=== PATIENT | male | born 1965 | race Caucasian/White ===

== ENCOUNTER 2018-08-21 15:54 | Inpatient (IN) | payer OTHER ==
[2018-08-21 17:03] VITALS: BMI 28.6
--- NOTE | 2018-08-21 18:44 | HP ---
COWS - Scale Resting Pulse: 1= [place] 81-100 Sweatin=Flushed/Facial Moisture Restless Observation: 3= Extraneous Movement Pupil Size: 0= Normal to Room Light Bone or Joint Aches: 2= Severe Diffuse Aches Runny Nose/ Eye Tearin= Nasal Congestion GI Upset > 30mins: 2= Nausea/Diarrhea Tremor Observation: 0= None Yawning Observation: 0= None Anxiety or Irritability: 2=Irritable/Anxious Goose Flesh Skin: 0=Smooth Skin COWS Score: 13 CIWA Score - Admission Criteria [facility]ASAS Guidelines: Admission for Medically Managed Detox: Requires at least one of the followin. CIWA greater than 12 2. Seizures within the past 24 hours 3. Delirium tremens within the past 24 hours 4. Hallucinations within the past 24 hours 5. Acute intervention needed for co occurring medical disorder 6. Acute intervention needed for co occurring psychiatric disorder 7. Severe withdrawal that cannot be handled at a lower level of care (continued vomiting, continued diarrhea, abnormal vital signs) requiring intravenous medication and/or fluids 8. Admission [facility] Allergies/Adverse Reactions: Allergies Allergy/AdvReac Type Severity Reaction Status Date / Time prochlorperazine AdvReac Severe Swelling Verified 08/21/18 16:48 [From Compazine] haloperidol [From Haldol] AdvReac Intermediate Swelling Verified 08/21/18 16:48 History of Present Illness: This report was requested by: Valerie Sandra | Reference #: [id number] Others' Prescriptions Patient Name: Rei Rosas Date: 1965 Address: [address] [place] [address] Sex: Male Rx Written Rx Dispensed Drug Quantity Days Supply Prescriber Name 02/03/2018 02/03/2018 suboxone 8 mg-2 mg sl film 90 30 Lila Galindo 01/06/2018 01/06/2018 suboxone 8 mg-2 mg sl film 90 30 Nj Demarco MD 12/31/2017 12/31/2017 suboxone 8 mg-2 mg sl film 21 7 Lila Galindo 12/01/2017 12/01/2017 suboxone 8 mg-2 mg sl film 28 14 Eliazar Galeana) 11/04/2017 11/04/2017 suboxone 8 mg-2 mg sl film 56 28 Teena Mitchell MD 10/21/2017 10/21/2017 suboxone 8 mg-2 mg sl film 28 14 Bret Goodwin MD 10/07/2017 10/07/2017 suboxone 8 mg-2 mg sl film 28 14 Bret Goodwin MD 10/06/2017 10/06/2017 suboxone 8 mg-2 mg sl film 2 1 Alexia Painting () 09/30/2017 09/30/2017 suboxone 8 mg-2 mg sl film 14 7 Nj Demarco MD 09/16/2017 09/16/2017 suboxone 8 mg-2 mg sl film 14 7 Teena Mitchell MD Patient Name: Rei Rosas Date: 1965 Address: [address] [place] [address] Sex: Male Rx Written Rx Dispensed Drug Quantity Days Supply Prescriber Name 12/16/2017 12/16/2017 suboxone 8 mg-2 mg sl film 42 14 Nj Demarco MD pt here requesting detox from heroin use , reports latest use yesterday , IVDU 4-5 bundles /day relapse after leaving [facility] @ [facility] 1 mo ago, reports admin d/c . cocaine : 20 $ /day ivdu , needles from the exchange , denies sharing , + re -using , denies abscess , OD " a long time ago " tobacco : 02/20 ppd pmhx : anxiety , Exam Limitations: Clinical Condition - Ebola screening Have you traveled outside of the country in the last 21 days: No Have you had contact with anyone from an Ebola affected area: No - Review of Systems Constitutional: See HPI EENT: reports: See HPI, Other (poor dentition , many missing teeth) Respiratory: reports: No Symptoms reported Cardiac: reports: No Symptoms Reported GI: reports: See HPI : reports: No Symptoms Reported Musculoskeletal: reports: See HPI, Back Pain (chronic) Integumentary: reports: Rash (reports mosquito bites) Endocrine: reports: No Symptoms Reported Psychiatric: reports: Orientated x3, Agitated, Anxious Patient History - Patient Medical History Hx Anemia: No Hx Asthma: No Hx Chronic Obstructive Pulmonary Disease (COPD): No Hx Cancer: No Hx Cardiac Disorders: No Hx Congestive Heart Failure: No Hx Hypertension: No Hx Hypercholesterolemia: No Hx Pacemaker: No HX Cerebrovascular Accident: No Hx Seizures: No Hx Dementia: No Hx Diabetes: No Hx Gastrointestinal Disorders: No Hx Liver Disease: No Hx Genitourinary Disorders: No Hx Sexually Transmitted Disorders: No Hx Renal Disease (ESRD): No Hx Thyroid Disease: No Hx Human Immunodeficiency Virus (HIV): No Hx Hepatitis C: Yes Hx Depression: No Hx Suicide Attempt: No Hx Bipolar Disorder: No Hx Schizophrenia: No - Patient Surgical History Past Surgical History: Yes Hx Neurologic Surgery: No Hx Cataract Extraction: No Hx Cardiac Surgery: No Hx Lung Surgery: No Hx Breast Surgery: No Hx Breast Biopsy: No Hx Abdominal Surgery: No Hx Appendectomy: No Hx Cholecystectomy: Yes (1999 OPEN) Hx Genitourinary Surgery: Yes (KIDNEY STONE REMOVED 2014) Hx Orthopedic Surgery: No Anesthesia Reaction: No - PPD History Date: 11/21/12 - Smoking Cessation Smoking history: Current every day smoker Have you smoked in the past 12 months: Yes Aproximately how many cigarettes per day: 10 Cigars Per Day: 0 Hx Chewing Tobacco Use: No Initiated information on smoking cessation: No - Substances abused Cocaine Substance route: Injection Frequency: Daily Amount used: 20 dollars Age of first use: 26 Date of last use: 08/20/18 Heroin Substance route: Injection Frequency: Daily Amount used: 1 bundle Age of first use: 26 Date of last use: 08/21/18 Marijuana/Hashish Substance route: Smoking Frequency: 1-2 times per week Amount used: 1 joint Age of first use: 16 Date of last use: 08/21/18 Family Disease History - Family Disease History Family Disease History: CA: Father, Mother Admission Physical Exam S - Vital Signs Vital Signs: Vital Signs - 24 hr 08/21/18 16:45 Temperature 97.8 F Pulse Rate 89 Respiratory 16 Rate Blood Pressure 131/79 - Physical General Appearance: Yes: Moderate Distress, Anxious, Other (agitated) HEENTM: Yes: Normocephalic, Normal Voice, Other (edentulous) Respiratory: Yes: Lungs Clear, Normal Breath Sounds, No Respiratory Distress, No Accessory Muscle Use Neck: Yes: No masses,lesions,Nodules, Trachea in good position Cardiology: Yes: Regular Rhythm, Regular Rate, S1, S2, Tachycardia Abdominal: Yes: Non Tender, Soft Musculoskeletal: Yes: full range of Motion, Gait Steady Extremities: Yes: Normal Range of Motion, Non-Tender Neurological: Yes: Alert, Motor Strength 5/5 Integumentary: Yes: Warm - Diagnostic (1) Cocaine dependence Current Visit: Yes Status: Chronic (2) Nicotine dependence Current Visit: Yes Status: Chronic Qualifiers: Nicotine product type: cigarettes (3) Opioid dependence Current Visit: Yes Status: Acute (4) Cannabis dependence Current Visit: Yes Status: Chronic Breathalyzer - Breathalyzer Breathalyzer: 0 Urine Drug Screen - Test Device Lot number: [id number] Expiration date: 04/16/20 - Control Is test valid?: Yes - Results Drug screen NEGATIVE: No Urine drug screen results: THC-Marijuana, ANNALISE-Cocaine, MOP-Opiates, MTD- Methadone Inpatient Rehab Admission - Rehab Decision to Admit Inpatient rehab admission?: No
[2018-08-21] MEDS ORDERED: BISMUTH SUBSALICYLATE 524 MG/30 ML UD PO PRN (19:00)
[2018-08-21] MEDS ORDERED: MAG HYDROX/AL HYDROX/SIMETH 30 ML UNIT-DOSE CUP PO PRN (19:00)
[2018-08-21] MEDS ORDERED: NICOTINE POLACRILEX 2 MG GUM BUC PRN (19:00)
[2018-08-21] MEDS ORDERED: MAGNESIUM HYDROX 2400MG/30ML ORAL SUSPENSION 30 ML CUP PO PRN (19:00)
[2018-08-21] MEDS ORDERED: ACETAMINOPHEN 325 MG TABLET (FP) PO PRN ×2 (19:00)
[2018-08-21] MEDS ORDERED: MAGNESIUM CITRATE 300 ML BOTTLE PO PRN (19:00)
[2018-08-21] MEDS ORDERED: MENTHOL/PHENOL 1 EACH UD MM PRN (19:00)
[2018-08-21] MEDS ORDERED: hydrOXYzine PAMOATE 25 MG CAPSULE (FP) PO PRN (19:00)
[2018-08-21] MEDS ORDERED: METHADONE HCL 10 MG TABLET (FOR DETOX USE ONLY) PO ONE (19:38)
[2018-08-21] MEDS ORDERED: cloNIDine HCL 0.1 MG TABLET PO PRN (19:38)
[2018-08-21] MEDS ORDERED: CALAMINE 8% TOPICAL LOTION 177 ML BOTTLE TP PRN (19:42)
[2018-08-21] MEDS: THIAMINE HCL 100 MG TABLET (FP) PO SCH (22:32)
[2018-08-21] MEDS: MELATONIN 5 MG TABLETS PO PRN (22:33)
[2018-08-22] MEDS ORDERED: METHADONE (DETOX) 20 MG, METHADONE (DETOX) 5 MG PO ONE (10:00)
[2018-08-22] MEDS ORDERED: METHADONE HCL 10 MG TABLET (FOR DETOX USE ONLY) ONE (10:13)
[2018-08-22] MEDS ORDERED: METHADONE HCL 5 MG TABLET (FOR DETOX USE ONLY) ONE (10:13)
[2018-08-22] MEDS: PRENATAL VITAMINS W/ FOLIC ACID TABLET (FP) PO SCH (10:51)
[2018-08-22 11:16] LABS: ALBUMIN 3.4 g/dl (3.4-5.0); BILIRUBIN,TOTAL 0.2 mg/dL (0.2-1); BLOOD UREA NITROGEN 20.2 mg/dL (7-18); CALCIUM 8.5 mg/dL (8.5-10.1); CREATININE 0.9 mg/dL (0.55-1.3); TOT PROT 6.8 g/dl (6.4-8.2)
[2018-08-22 11:17] LABS: HEMATOCRIT 38.5 % (35.4-49); HEMOGLOBIN 12.8 GM/dL (11.7-16.9); MCH 29.4 pg (25.7-33.7); MCHC 33.2 g/dl (32.0-35.9); MEAN CELL VOLUME 88.7 fl (80-96); MEAN PLT VOLUME 8.5 fl (7.5-11.1); RBC 4.34 M/mm3 (4.00-5.60); RDW 13.9 % (11.9-15.9)
[2018-08-22 12:20] LABS: PLATELET COUNT 270 K/MM3 (134-434)
--- NOTE | 2018-08-22 12:55 | PN ---
S COWS - Scale Resting Pulse: 0= [place] 80 or Below Sweatin= Beads of Sweat on Face Restless Observation: 1= Difficult to Sit Still Pupil Size: 0= Normal to Room Light Bone or Joint Aches: 2= Severe Diffuse Aches Runny Nose/ Eye Tearin= None GI Upset > 30mins: 0= None Tremor Observation of Outstretched Hands: 2= Slight Tremor Visible Yawning Observation: 1= 1-2x During Session Anxiety or Irritability: 2=Irritable/Anxious Goose Flesh Skin: 0=Smooth Skin COWS Score: 11 [facility] Progress Note (SOAP) Subjective: c/o interrupted sleep, anxiety, irritability, and mild shakes. Objective: 08/22/18 12:56 Vital Signs 08/22/18 08/22/18 07:54 09:35 Temperature 97.5 F L 98.1 F Pulse Rate 68 74 Respiratory 18 16 Rate Blood Pressure 116/55 L 134/73 Lab Results WBC 7.0 K/mm3 (4.0-10.0) 08/22/18 08:00 RBC 4.34 M/mm3 (4.00-5.60) 08/22/18 08:00 Hgb 12.8 GM/dL (11.7-16.9) 08/22/18 08:00 Hct 38.5 % (35.4-49) 08/22/18 08:00 MCV 88.7 fl (80-96) 08/22/18 08:00 MCHC 33.2 g/dl (32.0-35.9) 08/22/18 08:00 RDW 13.9 % (11.9-15.9) 08/22/18 08:00 Plt Count 270 K/MM3 (134-434) 08/22/18 08:00 Sodium 140 mmol/L (136-145) 08/22/18 08:00 Potassium 4.0 mmol/L (3.5-5.1) 08/22/18 08:00 Chloride 104 mmol/L (98-107) 08/22/18 08:00 Carbon Dioxide 30 mmol/L (21-32) 08/22/18 08:00 Anion Gap 5 MMOL/L (8-16) L 08/22/18 08:00 BUN 20.2 mg/dL (7-18) H 08/22/18 08:00 Creatinine 0.9 mg/dL (0.55-1.3) 08/22/18 08:00 Random Glucose 182 mg/dL (74-106) H 08/22/18 08:00 Calcium 8.5 mg/dL (8.5-10.1) 08/22/18 08:00 Labs noted. Assessment: 08/22/18 12:56 AOX3, in no respiratory distress Full ROM, ambulating in the unit. withdrawal signs Plan: continue detox.
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
[2018-08-22] MEDS: busPIRone HCL 5 MG TABLET PO SCH (22:39)
[2018-08-22] MEDS: THIAMINE HCL 100 MG TABLET (FP) PO SCH (22:40)
[2018-08-22] MEDS: MELATONIN 5 MG TABLETS PO PRN (22:40)
[2018-08-22] MEDS: IBUPROFEN 400 MG TABLET (FP) PO PRN (22:41)
[2018-08-23] MEDS: busPIRone HCL 5 MG TABLET PO SCH ×2 (09:55→22:58)
[2018-08-23] MEDS: PRENATAL VITAMINS W/ FOLIC ACID TABLET (FP) PO SCH (09:55)
[2018-08-23] MEDS: IBUPROFEN 400 MG TABLET (FP) PO PRN ×2 (09:56→18:50)
[2018-08-23] MEDS ORDERED: TRIMETHOBENZAMIDE HCL 300 MG CAPSULE PO PRN (09:59)
[2018-08-23] MEDS ORDERED: BACITRACIN 15 GM TUBE TOPICAL OINTMENT TP SCH (10:00)
[2018-08-23] MEDS ORDERED: METHADONE HCL 10 MG TABLET (FOR DETOX USE ONLY) PO ONE (10:00)
[2018-08-23] MEDS ORDERED: diphenhydrAMINE HCL 25 MG CAPSULE (FP) PO ONE (11:00)
[2018-08-23] MEDS: SODIUM CHLORIDE NASAL SPRAY 44 ML BOTTLE NS PRN ×2 (12:52→22:59)
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
[2018-08-23] MEDS: THIAMINE HCL 100 MG TABLET (FP) PO SCH (22:58)
[2018-08-23] MEDS: MELATONIN 5 MG TABLETS PO PRN (22:59)
[2018-08-23] MEDS: BACITRACIN 0.9 GM PACKET TP SCH (23:00)
[2018-08-24] MEDS ORDERED: METHADONE HCL 5 MG TABLET (FOR DETOX USE ONLY) ONE (09:11)
[2018-08-24] MEDS ORDERED: METHADONE HCL 10 MG TABLET (FOR DETOX USE ONLY) ONE (09:11)
[2018-08-24 09:31] VITALS: BP 159/80; PULSE 78; TEMP 96.8
--- NOTE | 2018-08-24 09:50 | PN ---
[facility] COWS - Scale Resting Pulse: 0= [place] 80 or Below Sweatin= Chills/Flushing Restless Observation: 0= Sits Still Pupil Size: 0= Normal to Room Light Bone or Joint Aches: 1= Mild Discomfort Runny Nose/ Eye Tearin= Runny Nose/Eyes GI Upset > 30mins: 2= Nausea/Diarrhea Tremor Observation of Outstretched Hands: 2= Slight Tremor Visible Yawning Observation: 0= None Anxiety or Irritability: 1=Feels Anxious/Irritable Goose Flesh Skin: 0=Smooth Skin COWS Score: 9 [facility] Progress Note (SOAP) Subjective: pain to nostril sweats diarrhea Objective: 08/24/18 09:45 Vital Signs Temperature 96.8 F L 08/24/18 09:31 Pulse Rate 78 08/24/18 09:31 Respiratory Rate 18 08/24/18 09:31 Blood Pressure 159/80 08/24/18 09:31 O2 Sat by Pulse Oximetry (%) aaox3 ambulating no acute distress Assessment: 08/24/18 09:45 mild withdrawal sx erythema to nostril area noted, crusted and swelling with erythema also noted to tip of nose Plan: continue detox bactraban oint NS ordered Augmentin 500mg bid x 7 days
[2018-08-24] MEDS ORDERED: MUPIROCIN 2% TOPICAL OINTMENT FOR DECOLONIZATION NS SCH (10:00)
[2018-08-24] MEDS ORDERED: AMOX TR/POT CLAV 500MG/125MG TABLETS (FP) PO ONE (10:00)
[2018-08-24] MEDS ORDERED: METHADONE (DETOX) 10 MG, METHADONE (DETOX) 5 MG PO ONE (10:00)
[2018-08-24] MEDS: busPIRone HCL 5 MG TABLET PO SCH (10:25)
[2018-08-24] MEDS: BACITRACIN 0.9 GM PACKET TP SCH (10:26)
[2018-08-24] MEDS: PRENATAL VITAMINS W/ FOLIC ACID TABLET (FP) PO SCH (10:26)
--- NOTE | 2018-08-24 10:40 | PN ---
[facility] Progress Note Note: pt was argumentative during medication at the medication window with the RN dispensing his medication. pt c/o of withdrawal s/s and aggressive symptomatic management attempted however, pt in spite of extensive motivational counseling regarding the risk of relapse, seizures, OD/ , pt chose to sign out. security escorted him out.
--- NOTE | 2018-08-24 11:39 | DS ---
[facility] Detox Discharge Summary Admission Date: 08/21/18 - History Present History: Cannabis Dependence, Cocaine Dependence, MMTP - Physical Exam Results Vital Signs: Vital Signs Temperature 96.8 F L 08/24/18 09:31 Pulse Rate 78 08/24/18 09:31 Respiratory Rate 18 08/24/18 09:31 Blood Pressure 159/80 08/24/18 09:31 O2 Sat by Pulse Oximetry (%) - Treatment Hospital Course: Discharged Condition Good - Medication Discharge Medications: Ambulatory Orders Aripiprazole [Abilify -] 20 mg PO HS 11/19/12 Buspar - 30 mg PO BID 10/27/15 Gabapentin [Neurontin -] 100 mg PO BID #60 capsule 11/14/15 metFORMIN HCL [Glucophage -] 500 mg PO BID@0700,1630 #60 tablet 11/14/15 - Diagnosis (1) Cannabis dependence Current Visit: Yes Status: Chronic (2) Cocaine dependence Current Visit: Yes Status: Chronic (3) History of bipolar disorder Current Visit: Yes Status: Chronic (4) Nicotine dependence Current Visit: Yes Status: Chronic Qualifiers: Nicotine product type: cigarettes Substance use status: uncomplicated Qualified Code(s): F17.210 - Nicotine dependence, cigarettes, uncomplicated (5) Opioid dependence Current Visit: Yes Status: Chronic (6) Substance induced mood disorder Current Visit: Yes Status: Chronic (7) Bipolar disorder Current Visit: No Status: Acute (8) Anxiety Current Visit: No Status: Chronic (9) Diabetes mellitus, type II Current Visit: No Status: Chronic Qualifiers: Diabetes mellitus intermediate accountant insulin use: without intermediate accountant use Diabetes mellitus complication status: without complication Qualified Code(s): E11.9 - Type 2 diabetes mellitus without complications (10) Constipation Current Visit: No Status: Suspected Qualifiers: Constipation type: slow transit constipation Qualified Code(s): K59.01 - Slow transit constipation - AMA Did Patient Leave Against Medical Advice: Yes (going home; refused aftercare/ referral)
[2018-08-24] MEDS ORDERED: metFORMIN HCL 500 MG TABLET (FP) PO SCH (16:30)
[2018-08-24] MEDS ORDERED: AMOX TR/POT CLAV 500MG/125MG TABLETS (FP) PO SCH (17:30)
[2018-08-25] MEDS ORDERED: METHADONE HCL 10 MG TABLET (FOR DETOX USE ONLY) PO ONE (10:00)
[2018-08-26] MEDS ORDERED: METHADONE HCL 5 MG TABLET (FOR DETOX USE ONLY) PO ONE (06:00)
== END 2018-08-24 10:37 | disposition left against medical advice (07) | DRG 770 ==
LOC: YASAS 15:54 → Y6N 19:13
PROVIDERS: ADMIT Surgery; ATTEND Surgery
PROC: HZ2ZZZZ Detoxification Services for Substance Abuse Treatment (ICD-10-PCS; principal; 2018-08-21)
DX: F11.23 Opioid dependence with withdrawal (principal); F14.20 Cocaine dependence, uncomplicated; F12.20 Cannabis dependence, uncomplicated; F17.210 Nicotine dependence, cigarettes, uncomplicated; F19.24 Other psychoactive substance dependence with psychoactive substance-induced mood disorder; F41.9 Anxiety disorder, unspecified; F31.9 Bipolar disorder, unspecified; E11.9 Type 2 diabetes mellitus without complications; Z79.84 Long term (current) use of oral hypoglycemic drugs; K59.01 Slow transit constipation; Z91.19 Patient's noncompliance with other medical treatment and regimen
CPT/HCPCS: 36415; 80053; 82962; 85027; 86593; J0735

== ENCOUNTER 2019-02-07 08:56 | Inpatient (IN) | payer OTHER ==
[2019-02-07 09:59] VITALS: BMI 30.2
--- NOTE | 2019-02-07 10:22 | HP ---
COWS - Scale Resting Pulse: 0= [place] 80 or Below Sweatin= Chills/Flushing Restless Observation: 1= Difficult to Sit Still Pupil Size: 1= Pupils >than Normal Bone or Joint Aches: 2= Severe Diffuse Aches Runny Nose/ Eye Tearin= Runny Nose/Eyes GI Upset > 30mins: 2= Nausea/Diarrhea Tremor Observation: 2= Slight Tremor Visible Yawning Observation: 2= >3x During Session Anxiety or Irritability: 2=Irritable/Anxious Goose Flesh Skin: 0=Smooth Skin COWS Score: 15 CIWA Score - Admission Criteria OASAS Guidelines: Admission for Medically Managed Detox: Requires at least one of the followin. CIWA greater than 12 2. Seizures within the past 24 hours 3. Delirium tremens within the past 24 hours 4. Hallucinations within the past 24 hours 5. Acute intervention needed for co occurring medical disorder 6. Acute intervention needed for co occurring psychiatric disorder 7. Severe withdrawal that cannot be handled at a lower level of care (continued vomiting, continued diarrhea, abnormal vital signs) requiring intravenous medication and/or fluids 8. Admitting History and Physical - Admission Chief Complaint: i need help to stop sing heroin,cocaine,marijuana History of Present Illness: this 53 years old male with alcohol,cocaine and marijuana dependence,seeking detox, multiple admissions for detox ,last 08/21/18 to 08/26/18 syncope overdose yesterday,seen in [facility],receiving narcan from friend discharge from [place] this morning hepatitis c treated nicotine dependence neuropathy anxiety disorder,ptsd on abilify by injectio longest period of sobriety 7 years homeless History Source: Patient Limitations to Obtaining History: No Limitations - 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 Hepatobiliary: Yes: Hepatitis C (hepatitic treated) Musculoskeletal: Yes: Chronic low back pain Additional Past Medical History: neuropathy anxiety on abilify - Past Surgical History Past Surgical History: Yes: Cholecystectomy Additional Past Surgical History: open cholecystectomy at [facility] - Smoking History Smoking history: Current every day smoker Have you smoked in the past 12 months: Yes Aproximately how many cigarettes per day: 10 - Alcohol/Substance Use Hx Alcohol Use: No History of Substance Use: reports: Cocaine, Heroin, Marijuana - Social History Usual Living Arrangement: Yes: Other (homeless) ADL: Support Services Occupation: unemployed History of Recent Travel: No Other Social History: this 53 years old male with heroin,cocaine and marijuana dependence,homeless,nicotine dependence,umemployed,for. detox Admission ROS [facility] Chief Complaint: i need help to stop using heroin,cocaine and marijuana Allergies/Adverse Reactions: Allergies Allergy/AdvReac Type Severity Reaction Status Date / Time prochlorperazine AdvReac Severe Swelling Verified 02/07/19 09:42 [From Compazine] haloperidol [From Haldol] AdvReac Intermediate Swelling Verified 02/07/19 09:42 History of Present Illness: this 53 years old male with heroin,cocaine and marijuana dependence,seeking detox,withdrawal symptom, overdose 02/06/19 receiving narcan by friend, seen in [place] last night and discharge this morning multiple admission in detox last 08/21/18 to 08/24/18 lap cholecystectomy in 1999 hepatitis c treated 1999 neuropathy longest sobriety 7 years from 1995 to 2003 anxiety,ptsd receiving abilify by injection Exam Limitations: No Limitations - Ebola screening Have you traveled outside of the country in the last 21 days: No (N) Have you had contact with anyone from an Ebola affected area: No - Review of Systems Constitutional: Chills, Loss of Appetite, Night Sweats, Changes in sleep, Weakness EENT: reports: Nose Congestion Respiratory: reports: No Symptoms reported Cardiac: reports: No Symptoms Reported GI: reports: Diarrhea, Nausea, Abdominal cramping : reports: No Symptoms Reported Musculoskeletal: reports: Back Pain, Joint Pain, Muscle Pain Integumentary: reports: Dryness Neuro: reports: Tremors Endocrine: reports: No Symptoms Reported Hematology: reports: No Symptoms Reported Psychiatric: reports: No Sypmtoms Reported, Judgement Intact, Mood/Affect Appropiate, Orientated x3, Anxious (ptsd) Patient History - Patient Medical History Hx Anemia: No Hx Asthma: No Hx Chronic Obstructive Pulmonary Disease (COPD): No Hx Cancer: No Hx Cardiac Disorders: No Hx Congestive Heart Failure: No Hx Hypertension: No Hx Hypercholesterolemia: No Hx Pacemaker: No HX Cerebrovascular Accident: No Hx Seizures: No Hx Dementia: No Hx Diabetes: No Hx Gastrointestinal Disorders: No Hx Liver Disease: No Hx Genitourinary Disorders: No Hx Sexually Transmitted Disorders: No Hx Renal Disease (ESRD): No Hx Thyroid Disease: No Hx Human Immunodeficiency Virus (HIV): No (last 08/05 negative) Hx Hepatitis C: Yes (treated) Hx Depression: No Hx Suicide Attempt: No Hx Bipolar Disorder: No Hx Schizophrenia: Yes (?) Other Medical History: anxiety,ptsd,no suicidal,no homicidal - Patient Surgical History Past Surgical History: Yes Hx Neurologic Surgery: No Hx Cataract Extraction: No Hx Cardiac Surgery: No Hx Lung Surgery: No Hx Breast Surgery: No Hx Breast Biopsy: No Hx Abdominal Surgery: No Hx Appendectomy: No Hx Cholecystectomy: Yes (1999 OPEN) Hx Genitourinary Surgery: Yes (KIDNEY STONE REMOVED 2014) Hx Orthopedic Surgery: No Anesthesia Reaction: No - PPD History Documented Results: Negative w/o proof Implanted On Prior [facility] Admission?: Yes Date: 11/21/12 PPD to be Administered?: Yes - Smoking Cessation Smoking history: Current every day smoker Have you smoked in the past 12 months: Yes Aproximately how many cigarettes per day: 10 Cigars Per Day: 0 Hx Chewing Tobacco Use: No Initiated information on smoking cessation: Yes 'Breaking Loose' booklet given: 02/07/19 - Substance & Tx. History Hx Alcohol Use: No Hx Substance Use: Yes Substance Use Type: Cocaine, Heroin, Marijuana Hx Substance Use Treatment: Yes ([facility] 08/21/18 to 08/24/18) - Substances abused Cocaine Substance route: Injection Frequency: Daily Amount used: 20 dollars Age of first use: 26 Date of last use: 02/05/19 Heroin Substance route: Injection Frequency: Daily Amount used: 5 BAGS Age of first use: 26 Date of last use: 02/06/19 Marijuana/Hashish Substance route: Smoking Frequency: 1-2 times per week Amount used: 1 joint Age of first use: 16 Date of last use: 01/08/19 Admission Physical Exam BHS - Vital Signs Vital Signs: Vital Signs - 24 hr 02/07/19 09:53 Temperature 97.4 F L Pulse Rate 61 Respiratory 20 Rate Blood Pressure 120/65 - Physical General Appearance: Yes: Moderate Distress, Tremorous, Irritable, Sweating, Anxious HEENTM: Yes: Normal ENT Inspection, YIN, Pharynx Normal Respiratory: Yes: Lungs Clear, Normal Breath Sounds, No Respiratory Distress Neck: Yes: Within Normal Limits, Supple, Trachea in good position Breast: Yes: Within Normal Limits Cardiology: Yes: Within Normal Limits, Regular Rhythm, Regular Rate, S1, S2 Abdominal: Yes: Within Normal Limits, Normal Bowel Sounds, Non Tender, Soft, Surgical Scar Genitourinary: Yes: Within Normal Limits Back: Yes: Muscle Spasm Musculoskeletal: Yes: Back pain, Joint Stiffness, Muscle Pain Extremities: Yes: Tremors Neurological: Yes: flake miller helper II-XII NML intact, Fully Oriented, Alert, Motor Strength 5/5 Integumentary: Yes: Dry Lymphatic: Yes: Within Normal Limits - Diagnostic (1) Opioid dependence with withdrawal Current Visit: Yes Status: Acute (2) Cocaine dependence Current Visit: No Status: Chronic (3) Nicotine dependence Current Visit: No Status: Chronic Qualifiers: Nicotine product type: cigarettes Substance use status: uncomplicated Qualified Code(s): F17.210 - Nicotine dependence, cigarettes, uncomplicated (4) Anxiety Current Visit: No Status: Chronic (5) Hepatitis C Current Visit: Yes Status: Acute (6) Schizophrenia Current Visit: Yes Status: Acute (7) PTSD (post-traumatic stress disorder) Current Visit: Yes Status: Acute (8) History of drug overdose Current Visit: Yes Status: Acute Cleared for Admission [facility] - Detox or Rehab [facility] Level of Care: Medically Managed Detox Regimen/Protocol: Methadone Breathalyzer - Breathalyzer Breathalyzer: 0 Urine Drug Screen - Test Device Lot number: [id number] Expiration date: 09/16/20 - Control Is test valid?: Yes - Results Drug screen NEGATIVE: No Urine drug screen results: THC-Marijuana, ANNALISE-Cocaine, MET-Methamphetamine, FEN- Fentanyl, MOP-Opiates, BUP-Suboxone Inpatient Rehab Admission - Rehab Decision to Admit Inpatient rehab admission?: No
[2019-02-07] MEDS ORDERED: cloNIDine HCL 0.1 MG TABLET PO PRN (10:45)
[2019-02-07] MEDS ORDERED: MAGNESIUM CITRATE 300 ML BOTTLE PO PRN (10:45)
[2019-02-07] MEDS ORDERED: IBUPROFEN 400 MG TABLET (FP) PO PRN (10:45)
[2019-02-07] MEDS ORDERED: METHOCARBAMOL 500 MG TABLET PO PRN (10:45)
[2019-02-07] MEDS ORDERED: MENTHOL/PHENOL 1 EACH UD MM PRN (10:45)
[2019-02-07] MEDS ORDERED: NICOTINE POLACRILEX 2 MG GUM BUC PRN (10:45)
[2019-02-07] MEDS ORDERED: hydrOXYzine PAMOATE 25 MG CAPSULE (FP) PO PRN (10:45)
[2019-02-07] MEDS ORDERED: METHADONE HCL 10 MG TABLET (FOR DETOX USE ONLY) PO ONE (10:45)
[2019-02-07] MEDS ORDERED: BISMUTH SUBSALICYLATE 524 MG/30 ML UD PO PRN (10:45)
[2019-02-07] MEDS ORDERED: MAGNESIUM HYDROX 2400MG/30ML ORAL SUSPENSION 30 ML CUP PO PRN (10:45)
[2019-02-07] MEDS ORDERED: ACETAMINOPHEN 325 MG TABLET (FP) PO PRN ×2 (10:45)
[2019-02-07] MEDS: GABAPENTIN 100 MG CAPSULE (FP) PO SCH ×2 (11:37→21:56)
[2019-02-07] MEDS: THIAMINE HCL 100 MG TABLET (FP) PO SCH (21:57)
[2019-02-07] MEDS ORDERED: MELATONIN 5 MG TABLETS PO PRN (22:00)
[2019-02-08] MEDS ORDERED: METHADONE HCL 5 MG TABLET (FOR DETOX USE ONLY) PO ONE (10:00)
[2019-02-08] MEDS: PRENATAL VITAMINS W/ FOLIC ACID TABLET (FP) PO SCH (10:15)
[2019-02-08] MEDS: GABAPENTIN 100 MG CAPSULE (FP) PO SCH ×2 (10:15→21:14)
[2019-02-08 10:39] LABS: HEMATOCRIT 36.5 % (35.4-49); HEMOGLOBIN 12.1 GM/dL (11.7-16.9); MCH 29.7 pg (25.7-33.7); MCHC 33.2 g/dl (32.0-35.9); MEAN CELL VOLUME 89.2 fl (80-96); MEAN PLT VOLUME 8.6 fl (7.5-11.1); PLATELET COUNT 213 K/MM3 (134-434); RBC 4.09 M/mm3 (4.00-5.60); RDW 13.6 % (11.9-15.9); WHITE BLOOD COUNT 7.5 K/mm3 (4.0-10.0)
--- NOTE | 2019-02-08 10:43 | PN ---
S COWS - Scale Resting Pulse: 0= [place] 80 or Below Sweatin= No chills or Flushing Restless Observation: 1= Difficult to Sit Still Pupil Size: 1= Pupils >than Normal Bone or Joint Aches: 1= Mild Discomfort Runny Nose/ Eye Tearin= Runny Nose/Eyes GI Upset > 30mins: 2= Nausea/Diarrhea Tremor Observation of Outstretched Hands: 2= Slight Tremor Visible Yawning Observation: 1= 1-2x During Session Anxiety or Irritability: 2=Irritable/Anxious Goose Flesh Skin: 0=Smooth Skin COWS Score: 12 S Progress Note (SOAP) Subjective: alert,irritable,anxious,interrupted sleep,pain in the body or back Objective: 02/08/19 10:50 Vital Signs Temperature 97.2 F L 02/08/19 09:14 Pulse Rate 68 02/08/19 09:14 Respiratory Rate 18 02/08/19 09:14 Blood Pressure 122/66 02/08/19 09:14 O2 Sat by Pulse Oximetry (%) 02/08/19 11:15 Laboratory Last Values WBC 7.5 K/mm3 (4.0-10.0) 02/08/19 07:45 RBC 4.09 M/mm3 (4.00-5.60) 02/08/19 07:45 Hgb 12.1 GM/dL (11.7-16.9) 02/08/19 07:45 Hct 36.5 % (35.4-49) 02/08/19 07:45 MCV 89.2 fl (80-96) 02/08/19 07:45 MCH 29.7 pg (25.7-33.7) 02/08/19 07:45 MCHC 33.2 g/dl (32.0-35.9) 02/08/19 07:45 RDW 13.6 % (11.9-15.9) 02/08/19 07:45 Plt Count 213 K/MM3 (134-434) D 02/08/19 07:45 MPV 8.6 fl (7.5-11.1) 02/08/19 07:45 Sodium 140 mmol/L (136-145) 02/08/19 07:45 Potassium 4.0 mmol/L (3.5-5.1) 02/08/19 07:45 Chloride 106 mmol/L (98-107) 02/08/19 07:45 Carbon Dioxide 31 mmol/L (21-32) 02/08/19 07:45 Anion Gap 3 MMOL/L (8-16) L 02/08/19 07:45 BUN 19.2 mg/dL (7-18) H 02/08/19 07:45 Creatinine 0.9 mg/dL (0.55-1.3) 02/08/19 07:45 Est GFR (CKD-EPI)AfAm 111.05 02/08/19 07:45 Est GFR (CKD-EPI)NonAf 95.81 02/08/19 07:45 Random Glucose 170 mg/dL (74-106) H 02/08/19 07:45 Calcium 8.2 mg/dL (8.5-10.1) L 02/08/19 07:45 Total Bilirubin 0.2 mg/dL (0.2-1) 02/08/19 07:45 AST 23 U/L (15-37) 02/08/19 07:45 ALT 59 U/L (13-61) 02/08/19 07:45 Alkaline Phosphatase 62 U/L (45-117) 02/08/19 07:45 Total Protein 6.5 g/dl (6.4-8.2) 02/08/19 07:45 Albumin 3.3 g/dl (3.4-5.0) L 02/08/19 07:45 Assessment: 02/08/19 11:16 withdrawal symptom Plan: continue detox methadone regimen.initial glucose 170,fasting bgm in am,bgm monitoring
[2019-02-08 10:44] LABS: ALBUMIN 3.3 g/dl (3.4-5.0); BILIRUBIN,TOTAL 0.2 mg/dL (0.2-1); BLOOD UREA NITROGEN 19.2 mg/dL (7-18); CALCIUM 8.2 mg/dL (8.5-10.1); CREATININE 0.9 mg/dL (0.55-1.3); TOT PROT 6.5 g/dl (6.4-8.2)
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
[2019-02-08] MEDS: MAG HYDROX/AL HYDROX/SIMETH 30 ML UNIT-DOSE CUP PO PRN (19:36)
[2019-02-08] MEDS: THIAMINE HCL 100 MG TABLET (FP) PO SCH (21:14)
[2019-02-09] MEDS: MAG HYDROX/AL HYDROX/SIMETH 30 ML UNIT-DOSE CUP PO PRN (05:14)
--- NOTE | 2019-02-09 09:35 | PN ---
BHS COWS - Scale Resting Pulse: 0= [place] 80 or Below Sweatin= Chills/Flushing Restless Observation: 0= Sits Still Pupil Size: 0= Normal to Room Light Bone or Joint Aches: 1= Mild Discomfort Runny Nose/ Eye Tearin= None GI Upset > 30mins: 0= None Tremor Observation of Outstretched Hands: 0= None Yawning Observation: 0= None Anxiety or Irritability: 2=Irritable/Anxious Goose Flesh Skin: 0=Smooth Skin COWS Score: 4 BHS Progress Note (SOAP) Subjective: c/o mild sweats, anxiety, and muscle aches. Objective: 02/09/19 09:33 Vital Signs 02/09/19 02/09/19 02/09/19 03:30 05:56 09:21 Temperature 97.7 F 96.8 F L Pulse Rate 64 62 Respiratory 18 18 20 Rate Blood Pressure 118/58 L 133/73 Assessment: 02/09/19 09:34 AOX3, in no acute respiratory distress. Full ROM, ambulating in the unit. Mild Withdrawal symptoms. For d/c tomorrow. Plan: continue detox. D/C in AM.
[2019-02-09] MEDS ORDERED: METHADONE HCL 10 MG TABLET (FOR DETOX USE ONLY) PO ONE (10:00)
[2019-02-09] MEDS: PRENATAL VITAMINS W/ FOLIC ACID TABLET (FP) PO SCH (10:13)
[2019-02-09] MEDS: GABAPENTIN 100 MG CAPSULE (FP) PO SCH ×2 (10:13→22:28)
[2019-02-09] MEDS: THIAMINE HCL 100 MG TABLET (FP) PO SCH (22:28)
[2019-02-10] MEDS ORDERED: METHADONE HCL 5 MG TABLET (FOR DETOX USE ONLY) PO ONE (06:00)
[2019-02-10] MEDS: PRENATAL VITAMINS W/ FOLIC ACID TABLET (FP) PO SCH (10:15)
[2019-02-10] MEDS: GABAPENTIN 100 MG CAPSULE (FP) PO SCH (10:15)
--- NOTE | 2019-02-10 10:21 | PN ---
BHS COWS - Scale Resting Pulse: 0= [place] 80 or Below Sweatin= No chills or Flushing Restless Observation: 1= Difficult to Sit Still Pupil Size: 0= Normal to Room Light Bone or Joint Aches: 1= Mild Discomfort Runny Nose/ Eye Tearin= None GI Upset > 30mins: 0= None Tremor Observation of Outstretched Hands: 1= Tremor [place], Not Seen Yawning Observation: 0= None Anxiety or Irritability: 0= None Goose Flesh Skin: 0=Smooth Skin COWS Score: 3 BHS Progress Note (SOAP) Subjective: feeling better Objective: 02/10/19 10:19 Vital Signs Temperature 97.3 F L 02/10/19 09:15 Pulse Rate 62 02/10/19 09:15 Respiratory Rate 18 02/10/19 09:15 Blood Pressure 131/66 02/10/19 09:15 O2 Sat by Pulse Oximetry (%) aaox3 ambulating no acute distress Assessment: 02/10/19 10:20 no s/s of withdrawals Plan: d/c today if there is a rehab bed in [facility]; other adame d/t and no means of transportation pt will stay until tomorrow.
[2019-02-10 13:17] VITALS: BP 136/74; PULSE 64; TEMP 98.1
[2019-02-10 18:34] LABS: URINE APPEARANCE CLEAR; URINE BILIRUBIN NEGATIVE (NEGATIVE); URINE COLOR YELLOW; URINE GLUCOSE (UA) NEGATIVE (NEGATIVE); URINE KETONE NEGATIVE (NEGATIVE); URINE LEUK ESTERASE NEGATIVE (NEGATIVE); URINE NITRITE NEGATIVE (NEGATIVE); URINE PROTEIN NEGATIVE (NEGATIVE); URINE UROBILINOGEN 0.2 mg/dL (0.2-1.0)
== END 2019-02-10 14:48 | disposition other institution (70) | DRG 773 ==
LOC: YASAS 08:56 → Y6N 10:57
PROVIDERS: ADMIT Allergy & Immunology; ATTEND Allergy & Immunology
PROC: HZ2ZZZZ Detoxification Services for Substance Abuse Treatment (ICD-10-PCS; principal; 2019-02-07)
DX: F11.23 Opioid dependence with withdrawal (principal); F14.20 Cocaine dependence, uncomplicated; F12.20 Cannabis dependence, uncomplicated; F17.210 Nicotine dependence, cigarettes, uncomplicated; F43.10 Post-traumatic stress disorder, unspecified; F31.9 Bipolar disorder, unspecified; F41.9 Anxiety disorder, unspecified; E11.9 Type 2 diabetes mellitus without complications; L30.9 Dermatitis, unspecified; B18.2 Chronic viral hepatitis C; G62.9 Polyneuropathy, unspecified; M54.5 Low back pain; G89.29 Other chronic pain; Z86.59 Personal history of other mental and behavioral disorders; Z87.442 Personal history of urinary calculi; Z86.19 Personal history of other infectious and parasitic diseases; Z88.8 Allergy status to other drugs, medicaments and biological substances; Z59.0 Homelessness
CPT/HCPCS: 36415; 80053; 81003; 82947; 82962; 85027; 86593

== ENCOUNTER 2019-02-10 14:51 | Inpatient (IN) | payer OTHER ==
[2019-02-10] MEDS ORDERED: MAGNESIUM CITRATE 300 ML BOTTLE PO PRN (15:05)
[2019-02-10] MEDS ORDERED: P-EPHED 60MG/TRIPROLIDI 2.5MG TABLET PO PRN (15:05)
[2019-02-10] MEDS ORDERED: MAGNESIUM HYDROX 2400MG/30ML ORAL SUSPENSION 30 ML CUP PO PRN (15:05)
[2019-02-10] MEDS ORDERED: MENTHOL/PHENOL 1 EACH UD MM PRN (15:05)
[2019-02-10] MEDS ORDERED: ACETAMINOPHEN 325 MG TABLET (FP) PO PRN (15:05)
[2019-02-10] MEDS ORDERED: guaiFENesin 200 MG/10 ML 10 ML UNIT-DOSE CUPS PO PRN (15:05)
[2019-02-10] MEDS ORDERED: hydrOXYzine PAMOATE 25 MG CAPSULE (FP) PO PRN (15:05)
[2019-02-10] MEDS ORDERED: MAG HYDROX/AL HYDROX/SIMETH 30 ML UNIT-DOSE CUP PO PRN (15:05)
[2019-02-10] MEDS ORDERED: LOPERAMIDE HCL 2 MG CAPSULE PO PRN (15:05)
[2019-02-10] MEDS ORDERED: IBUPROFEN 400 MG TABLET (FP) PO PRN (15:05)
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
[2019-02-10] MEDS: GABAPENTIN 300 MG CAPSULE (FP) PO SCH (21:43)
[2019-02-10] MEDS: THIAMINE HCL 100 MG TABLET (FP) PO SCH (21:43)
[2019-02-10] MEDS: MELATONIN 5 MG TABLETS PO PRN (21:43)
[2019-02-11] MEDS: GABAPENTIN 300 MG CAPSULE (FP) PO SCH ×2 (10:32→21:42)
[2019-02-11] MEDS: PRENATAL VITAMINS W/ FOLIC ACID TABLET (FP) PO SCH (10:32)
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
[2019-02-11] MEDS ORDERED: ONDANSETRON *ODT* 4 MG TABLET SL ONE (14:22)
[2019-02-11] MEDS: MELATONIN 5 MG TABLETS PO PRN (21:42)
[2019-02-11] MEDS: THIAMINE HCL 100 MG TABLET (FP) PO SCH (21:42)
[2019-02-11] MEDS: busPIRone HCL 10 MG TABLET (FP) PO SCH (21:42)
[2019-02-12] MEDS: GABAPENTIN 300 MG CAPSULE (FP) PO SCH ×2 (09:56→21:54)
[2019-02-12] MEDS: PRENATAL VITAMINS W/ FOLIC ACID TABLET (FP) PO SCH (09:56)
[2019-02-12] MEDS: busPIRone HCL 10 MG TABLET (FP) PO SCH ×2 (09:56→21:54)
[2019-02-12] MEDS ORDERED: ONDANSETRON *ODT* 4 MG TABLET SL PRN (10:14)
--- NOTE | 2019-02-12 10:14 | PN ---
BHS COWS - Scale Resting Pulse: 0= [place] 80 or Below Sweatin=Flushed/Facial Moisture Restless Observation: 1= Difficult to Sit Still Pupil Size: 0= Normal to Room Light Bone or Joint Aches: 1= Mild Discomfort Runny Nose/ Eye Tearin= Nasal Congestion GI Upset > 30mins: 2= Nausea/Diarrhea Tremor Observation of Outstretched Hands: 0= None Yawning Observation: 0= None Anxiety or Irritability: 1=Feels Anxious/Irritable Goose Flesh Skin: 0=Smooth Skin COWS Score: 8 BHS Progress Note (SOAP) Subjective: PATIENT C/O CHILLS, SWEATS, ANXIETY, RESTLESSNESS AND NAUSEA. HAS HX OF OPIOD DEPENDENCE AND WAS TREATED WITH SUBOXONE 8MG SL TID AT [employer]. PATIENT CONTINUED TO USE HEROIN DESPITE MAT AND WAS DETOXED HERE AT [facility]. HE IS ADMITTED TO REHAB AND WOULD LIKE TO RESUME SUBOXONE TREATMENT. Rx Written Rx Dispensed Drug Quantity Days Supply Prescriber Name 02/01/2019 02/01/2019 buprenorphine-naloxone 8-2 mg sl film 90 30 Loren Gomez 01/04/2019 01/04/2019 buprenorphine-naloxone 8-2 mg sl film 90 30 Loren Gomez 12/08/2018 12/08/2018 buprenorphine-naloxone 8-2 mg sl film 90 30 Loren Gomez 11/11/2018 11/11/2018 buprenorphine-naloxone 8-2 mg sl film 60 30 Loren Gomez 10/20/2018 10/20/2018 suboxone 4 mg-1 mg sl film 84 28 Loren Gomez Mick 09/29/2018 09/29/2018 buprenorphine-naloxone 8-2 mg sl film 28 14 Loren Gomez 09/15/2018 09/16/2018 buprenorphine-naloxone 8-2 mg sl film 28 14 Loren Gomez 09/08/2018 09/08/2018 suboxone 4 mg-1 mg sl film 42 14 Des[facility] Objective: 02/12/19 10:51 Vital Signs Temperature 98.0 F 02/12/19 07:43 Pulse Rate 62 02/12/19 07:43 Respiratory Rate 18 02/12/19 07:43 Blood Pressure 127/67 02/12/19 07:43 O2 Sat by Pulse Oximetry (%) PE alert and oriented x 3 skin + beads of sweat of forehead anxious/restless pacing in [place] [facility], full rom Assessment: 02/12/19 10:52 suboxone mat opiod use disorder Plan: Patient informed he can resume suboxone at lower dose and titrate as needed. 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 Patient states his medication was stored by counselor at [facility] and he still has medication there at program. Will start suboxone 4mg sl bid zofran prn for nausea and vomiting monitor clinically
[2019-02-12] MEDS: BUPRENORPHINE/NALOXONE 4 MG/1 MG FILM PACKET SL SCH ×2 (11:26→21:54)
[2019-02-12] MEDS: THIAMINE HCL 100 MG TABLET (FP) PO SCH (21:54)
[2019-02-13] MEDS: PRENATAL VITAMINS W/ FOLIC ACID TABLET (FP) PO SCH (11:04)
[2019-02-13] MEDS: busPIRone HCL 10 MG TABLET (FP) PO SCH ×2 (11:04→21:43)
[2019-02-13] MEDS: BUPRENORPHINE/NALOXONE 4 MG/1 MG FILM PACKET SL SCH ×2 (11:04→21:45)
[2019-02-13] MEDS: GABAPENTIN 300 MG CAPSULE (FP) PO SCH ×2 (11:04→21:43)
[2019-02-13] MEDS: THIAMINE HCL 100 MG TABLET (FP) PO SCH (21:43)
[2019-02-14] MEDS: BUPRENORPHINE/NALOXONE 4 MG/1 MG FILM PACKET SL SCH ×2 (10:23→21:56)
[2019-02-14] MEDS: GABAPENTIN 300 MG CAPSULE (FP) PO SCH ×2 (10:23→21:56)
[2019-02-14] MEDS: busPIRone HCL 10 MG TABLET (FP) PO SCH ×2 (10:23→21:56)
[2019-02-14] MEDS: PRENATAL VITAMINS W/ FOLIC ACID TABLET (FP) PO SCH (10:23)
[2019-02-14] MEDS: THIAMINE HCL 100 MG TABLET (FP) PO SCH (21:56)
[2019-02-15 07:07] VITALS: BP 120/68; PULSE 69; TEMP 97.2
--- NOTE | 2019-02-15 09:30 | DS ---
[facility] Rehab Discharge Summary - [facility] Rehab Discharge Summary Admission Date: 02/10/19 Discharge Date: 02/17/19 - History Present History: Alcohol dependence, Cocaine dependence, Opioid dependence Additional Comments: Pt is a 53 y/o male with a hx of DIMAS admitted to rehab [address] [place] [address] [place] [address] on 02/10/19 and requesting an early discharge today. Treatment team discussed pt's stay today at rounds and pt met with his counselor Ms Nellie Metcalf and has been connected to [facility] for follow up. Pt is aon Suboxone-MAT with [email or web address] and will follow up with CD aftercare/psych/Medical management with facility. pt reports he has a provider at the location, Dr. Mathur. Pertinent Past History: Hep C Neuropathy Bipolar Disorder - Discharge Physical Exam Vital Signs: Vital Signs Temperature 97.2 F L 02/15/19 07:07 Pulse Rate 69 02/15/19 07:07 Respiratory Rate 18 02/15/19 07:07 Blood Pressure 120/68 02/15/19 07:07 O2 Sat by Pulse Oximetry (%) Alert o x 3,denies s/h/i nad oob ambulating with staedy gait cardiac:s1 s2,rrr lungs:cta,madelyn. abdomen:soft,+bs,nt,nd extremities/skin:no edema,full ROM/Skin on extremities with multiple healing lesions(due to drugs as per pt) and healed wound/scab on right ovalle("from bumping legs when used drugs/alcohol"). Pertinent Admission Physical Exam Findings: Status Unchanged from admission/stable - Treatment Discharge Condition: Discharge condition good Hospital Course: CD aftercare referral accepted Rehabilitated safely. - Medication Discharge Medications: Ambulatory Orders Aripiprazole [Abilify -] 0 mg PO HS 11/19/12 Buspar - 30 mg PO BID 10/27/15 Aripiprazole [Abilify Maintena] 0 mg IM 02/07/19 Gabapentin [Neurontin -] 300 mg PO BID 02/07/19 - Medication-Assisted Treatment (MAT) Medication-Assisted Treatment (MAT): Yes Medication Prescribed: Suboxone - Discharge Instructions Diet, activity, other medical instructions: Diet:Regular Activity: oob ad mary Other medical instructions:follow up with C/D aftercare/Suboxone-MAT/psych/ Medical management as recommended above at [facility]. - Diagnosis (1) Cocaine dependence Status: Chronic (2) Opioid dependence Status: Chronic (3) Neuropathy Status: Chronic (4) Nicotine dependence Status: Chronic Qualifiers: Nicotine product type: cigarettes Substance use status: uncomplicated Qualified Code(s): F17.210 - Nicotine dependence, cigarettes, uncomplicated (5) Hepatitis C Status: Resolved Qualifiers: Viral hepatitis chronicity: unspecified - Follow-up Referral Minutes to complete discharge: 20 - AMA Did Patient Leave Against Medical Advice: No Additional Comments: Pt has own meds including Suboxone at [facility] and will not be needing Rx from this facility.
[2019-02-15] MEDS: busPIRone HCL 10 MG TABLET (FP) PO SCH (09:48)
[2019-02-15] MEDS: GABAPENTIN 300 MG CAPSULE (FP) PO SCH (09:48)
[2019-02-15] MEDS: BUPRENORPHINE/NALOXONE 4 MG/1 MG FILM PACKET SL SCH (09:48)
[2019-02-15] MEDS: PRENATAL VITAMINS W/ FOLIC ACID TABLET (FP) PO SCH (09:48)
--- NOTE | 2019-02-17 11:31 | HP ---
[facility] Rehab Assess/Revision - Admission History Admitted to Rehab from: [facility] Date of Admission to Rehab: 02/10/19 - Findings Detox History & Physical reviewed: Yes Concur with findings: Yes Inpatient Rehab Admission - Rehab Decision to Admit Inpatient rehab admission?: Yes - Initial Determination Are CD services needed?: Yes Free of communicable disease: Yes Not in need of hospitalization: Yes - Rehab Admission Criteria Previous failed treatment: Yes Poor recovery environment: Yes Comorbidities: Yes Lacks judgement: Yes Patient is meeting Inpatient Rehab admission criteria:: Yes
== END 2019-02-15 10:40 | disposition home or self-care (01) | DRG 772 ==
LOC: YASAS 14:51 → Y5N 14:52
PROVIDERS: ADMIT Neuromusculoskeletal Medicine & OMM; ATTEND Neuromusculoskeletal Medicine & OMM
PROC: HZ42ZZZ Group Counseling for Substance Abuse Treatment, Cognitive-Behavioral (ICD-10-PCS; principal; 2019-02-10)
DX: F10.230 Alcohol dependence with withdrawal, uncomplicated (principal); F14.20 Cocaine dependence, uncomplicated; F17.210 Nicotine dependence, cigarettes, uncomplicated; F43.10 Post-traumatic stress disorder, unspecified; F32.9 Major depressive disorder, single episode, unspecified; E11.9 Type 2 diabetes mellitus without complications; G62.9 Polyneuropathy, unspecified; Z86.19 Personal history of other infectious and parasitic diseases; Z62.810 Personal history of physical and sexual abuse in childhood
CPT/HCPCS: Q0162